=== PATIENT | female | born 1995 | race Caucasian/White ===

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

== ENCOUNTER 2020-04-21 14:43 | Emergency (ER) | payer MEDICAID ==
[~2020-04-21] VITALS: Ht 167.6 cm; Wt 107.4 kg
[2020-04-21 14:51] VITALS: BP 131/91
[2020-04-22] MEDS ORDERED: IBUP-1840 PO (10:31)
== END 2020-04-21 16:25 | disposition home or self-care (01) ==
LOC: ED 16:19
DX: O26.891 Other specified pregnancy related conditions, first trimester (principal); M54.5 Low back pain; Z3A.01 Less than 8 weeks gestation of pregnancy
CPT/HCPCS: 99281

== ENCOUNTER 2020-04-21 15:13 | Inpatient (IN) | payer MEDICAID ==
[~2020-04-21] VITALS: Ht 167.6 cm; Wt 104.5 kg
[2020-04-21 17:01] LABS: AMPHETAMINE SCREEN, URINE Negative (Negative); BARBITURATE SCREEN, URINE Negative (Negative); BENZODIAZEPINE SCREEN, URINE Negative (Negative); CANNABINOID SCREEN, URINE Negative (Negative); COCAINE SCREEN, URINE Negative (Negative); METHADONE SCREEN, URINE Negative (Negative); OPIATE SCREEN, URINE Negative (Negative)
[2020-04-21] MEDS: D5%-LACTATED RINGERS 1,000 ML IV SCH ×2 (17:30→18:00)
[2020-04-21] MEDS ORDERED: OXYTOCIN 30U/ 0.9% NaCL 500ML 500 ML IV ONE (17:30)
[2020-04-21] MEDS ORDERED: OXYTOCIN 30U/ 0.9% NaCL 500ML 500 ML IV PRN ×2 (17:30→18:00)
[2020-04-21] MEDS ORDERED: RHOGAM FROM BLOOD BANK 1 NOTE EA IM/IV PRN ×2 (17:30→18:00)
[2020-04-21] MEDS ORDERED: PLEASE ENTER HEIGHT AND WEIGHT MC SCH (17:30)
[2020-04-21] MEDS: LACTATED RINGERS 1,000 ML IV SCH ×3 (17:55→19:00)
[2020-04-21] MEDS ORDERED: ONDANSETRON 2MG/ML, 2ML IVPush PRN (18:00)
[2020-04-21] MEDS ORDERED: SODIUM CITRATE/CITRIC ACID 30 ML UDC PO PRN (18:00)
[2020-04-21] MEDS ORDERED: CALCIUM CARBONATE 500 MG TAB.CHEW PO PRN (18:00)
[2020-04-21] MEDS ORDERED: ACETAMINOPHEN 325 MG TABLET PO PRN ×2 (18:00)
[2020-04-21] MEDS ORDERED: DIPHENHYDRAMINE 50 MG CAPSULE PO PRN (18:00)
[2020-04-21 18:01] LABS: MICROSCOPIC INDICATED
[2020-04-21 18:21] LABS: BASOPHILS % (AUTO) 0 % (0-1); EOSINOPHILS % (AUTO) 1 % (1-7); LYMPHOCYTES % (AUTO) 10 % (22-44); MEAN CORPUSCULAR HEMOGLOBIN 31.2 pg (27.0-34.8); MEAN CORPUSCULAR HGB CONC 34.8 g/dL (32.4-35.8); MEAN PLATELET VOLUME 7.9 fL (7.4-10.4); MONOCYTES % (AUTO) 5 % (2-9); NEUTROPHILS % (AUTO) 84 % (42-75); PLATELET COUNT 302 x10^3/uL (130-400); RED BLOOD COUNT 4.46 x10^6/uL (3.82-5.3); RED CELL DISTRIBUTION WIDTH 14.6 % (9.6-15.2)
[2020-04-21 18:30] LABS: ALANINE AMINOTRANSFERASE 30 U/L (12-78); ALBUMIN 2.6 g/dL (3.4-5.0); ANION GAP 8 mmol/L (5-15); CALCIUM 9.3 mg/dL (8.5-10.1); CHLORIDE 109 mmol/L (98-107); CREATININE 0.46 mg/dL (0.55-1.02)
[2020-04-21] MEDS ORDERED: FENTANYL PF 100 MCG/2ML ONE ×3 (18:31→22:27)
[2020-04-21 18:32] LABS: ALKALINE PHOSPHATASE 176 U/L (45-117); BILIRUBIN,TOTAL 0.7 mg/dL (0.2-1.0); TOTAL PROTEIN 6.8 g/dL (6.4-8.2)
[2020-04-21] MEDS ORDERED: OXYTOCIN 30U/ 0.9% NaCL 500ML 500 ML ONE ×2 (18:32→22:25)
[2020-04-21 18:37] LABS: MD NO
[2020-04-21] MEDS: FENTANYL PF 100 MCG/2ML IVPush PRN ×3 (18:50→23:04)
[2020-04-21] MEDS ORDERED: FENTANYL PF 100 MCG/2ML IV PRN (19:00)
[2020-04-21 19:28] VITALS: BP 139/83
[2020-04-21] MEDS ORDERED: LIDOCAINE 1%, 20ML ONE (22:54)
[2020-04-21] MEDS ORDERED: OXYcodone/APAP 5/325MG TABLET ONE (23:17)
[2020-04-21] MEDS ORDERED: IBUPROFEN 600 MG TABLET ONE (23:17)
[2020-04-22] MEDS: D5%-LACTATED RINGERS 1,000 ML IV SCH ×2 (01:30→02:00)
[2020-04-22] MEDS: LACTATED RINGERS 1,000 ML IV SCH (02:00)
[2020-04-22 06:38] LABS: BASOPHILS % (AUTO) 1 % (0-1); EOSINOPHILS % (AUTO) 0 % (1-7); LYMPHOCYTES % (AUTO) 14 % (22-44); MEAN CORPUSCULAR HEMOGLOBIN 31.1 pg (27.0-34.8); MEAN CORPUSCULAR HGB CONC 34.5 g/dL (32.4-35.8); MEAN PLATELET VOLUME 7.9 fL (7.4-10.4); MONOCYTES % (AUTO) 7 % (2-9); NEUTROPHILS % (AUTO) 78 % (42-75); PLATELET COUNT 292 x10^3/uL (130-400); RED BLOOD COUNT 4.05 x10^6/uL (3.82-5.3); RED CELL DISTRIBUTION WIDTH 14.7 % (9.6-15.2)
[2020-04-22 06:46] LABS: MD NO
[2020-04-22 07:15] VITALS: BP 132/77
[2020-04-22] MEDS ORDERED: IBUP-1840 PO (10:31)
== END 2020-04-22 11:50 | disposition home or self-care (01) | DRG 806 ==
LOC: LDOP 15:13 → LDIP 17:15
PROVIDERS: ADMIT Obstetrics & Gynecology; ATTEND Obstetrics & Gynecology
PROC: 10E0XZZ Delivery of Products of Conception, External Approach (ICD-10-PCS; principal; 2020-04-21)
PROC: 10907ZC Drainage of Amniotic Fluid, Therapeutic from Products of Conception, Via Natural or Artificial Opening (ICD-10-PCS; 2020-04-21)
DX: O48.0 Post-term pregnancy (principal); O36.4XX0 Maternal care for intrauterine death, not applicable or unspecified; Z37.1 Single stillbirth; O14.94 Unspecified pre-eclampsia, complicating childbirth; O69.1XX0 Labor and delivery complicated by cord around neck, with compression, not applicable or unspecified; Z3A.41 41 weeks gestation of pregnancy; Z83.3 Family history of diabetes mellitus
CPT/HCPCS: 36415; 76815; 80053; 80307; 81001; 82570; 84156; 84439; 84443; 84550; 85025; 85598; 85610; 85613; 85670; 85730; 85732; 86146; 86147; 86592; 86644; 86645; 86694; 86695; 86696; 86747; 86762; 86777; 86778; 86803; 86850; 86900; 87340; 87491; 87591; 87635; 87806; G0378; J3010; G0475; J2590; J7120